=== PATIENT | female | born 1995 | race African-American/Black ===

== ENCOUNTER 2016-12-30 23:40 | Emergency (ER) | payer OTHER ==
[~2016-12-30] VITALS: Ht 167.6 cm; Wt 70.4 kg
[2016-12-30 23:40] VITALS: BP 120/67
== END 2016-12-31 00:01 | disposition left against medical advice (07) ==
LOC: M ED 23:40
DX: Z53.29 Procedure and treatment not carried out because of patient's decision for other reasons (principal)